=== PATIENT | female | born 1950 | race Caucasian/White ===

== ENCOUNTER 2017-07-06 08:41 | Day surgery (SDC) | payer MEDICARE, OTHER ==
[2017-07-06] MEDS ORDERED: MIDAZOLAM 1 MG/ML 2 ML INJ (09:48)
[2017-07-06] MEDS ORDERED: LIDOCAINE 2% (SDV) 5 ML INJ (09:49)
[2017-07-06] MEDS ORDERED: ETOMIDATE 20 MG INJ (09:49)
== END 2017-07-06 15:37 | disposition home or self-care (01) ==
LOC: GIL 08:41
DX: I85.00 Esophageal varices without bleeding (principal); K31.89 Other diseases of stomach and duodenum; I10 Essential (primary) hypertension; E11.9 Type 2 diabetes mellitus without complications; I50.9 Heart failure, unspecified
CPT/HCPCS: 43244; 82962

== ENCOUNTER 2018-01-20 08:46 | Day surgery (SDC) | payer MEDICARE, OTHER ==
[2018-01-20] MEDS ORDERED: SOD CHLORIDE 0.9% 1,000 ML IV (10:30)
[2018-01-20] MEDS ORDERED: CEFAZOLIN 2 GM/50 ML (PMX) 50 ML IVPB (10:30)
== END 2018-01-20 11:30 | disposition home or self-care (01) ==
LOC: SDS 08:46
DX: K43.9 Ventral hernia without obstruction or gangrene (principal); Z53.9 Procedure and treatment not carried out, unspecified reason; I11.0 Hypertensive heart disease with heart failure; I50.9 Heart failure, unspecified; E11.9 Type 2 diabetes mellitus without complications
CPT/HCPCS: 82962

== ENCOUNTER 2018-06-09 06:04 | Day surgery (SDC) | payer MEDICARE, OTHER ==
[2018-06-09] MEDS ORDERED: CIPROFLOXACIN 400MG/D5W 200 ML (07:32)
[2018-06-09] MEDS ORDERED: LIDOCAINE 100 MG SYRINGE (08:29)
[2018-06-09] MEDS ORDERED: PROPOFOL 60 ML (08:29)
== END 2018-06-09 10:50 | disposition home or self-care (01) ==
LOC: GIL 06:04
DX: I85.00 Esophageal varices without bleeding (principal); K31.89 Other diseases of stomach and duodenum; I10 Essential (primary) hypertension; E11.9 Type 2 diabetes mellitus without complications; J45.909 Unspecified asthma, uncomplicated; Z79.84 Long term (current) use of oral hypoglycemic drugs; Z79.4 Long term (current) use of insulin
CPT/HCPCS: 43235; 82962